=== PATIENT | female | born 1985 | race Caucasian/White ===

== ENCOUNTER 2020-08-07 12:46 | Emergency (ER) | payer BC ==
[~2020-08-07] VITALS: Ht 167.6 cm; Wt 63.5 kg
[2020-08-07] MEDS ORDERED: Percocet 5-3251 EACH PO (18:17)
[2020-08-07] MEDS ORDERED: TIZA4 PO (18:17)
[2020-08-07] MEDS ORDERED: KETO10 PO (18:17)
== END 2020-08-07 18:30 | disposition home or self-care (01) ==
LOC: ER 12:46
DX: M54.6 Pain in thoracic spine (principal); Z88.0 Allergy status to penicillin; Z91.041 Radiographic dye allergy status
CPT/HCPCS: 96372-59; 99283; A9270; J1170; J1885; J3360

== ENCOUNTER 2021-02-03 08:20 | Emergency (ER) | payer BC ==
[~2021-02-03] VITALS: Ht 165.1 cm; Wt 72.6 kg
[~2021-02-03 08:20] MED LIST: KETO10 PO; Percocet 5-3251 EACH PO; TIZA4 PO
[2021-02-03] MEDS ORDERED: LITH300C PO (08:32)
[2021-02-03] MEDS ORDERED: Lamictal200 MG (08:32)
[2021-02-03 08:55] LABS: BASOPHILS ABSOLUTE AUTO 0.06 K/mm3 (0.00-0.23); BASOPHILS PERCENT AUTO 1 % (0-2); EOSINOPHILS ABSOLUTE AUTO 0.49 K/mm3 (0.00-0.68); EOSINOPHILS PERCENT AUTO 6 % (0-6); Hematocrit 39.5 % (33.0-51.0); Hemoglobin 13.3 g/dL (11.5-16.0); IMMATURE GRAN ABSOLUTE AUTO 0.04 K/mm3 (0.00-0.10); IMMATURE GRAN PERCENT AUTO 1 % (0-1); LYMPHOCYTES ABSOLUTE AUTO 2.07 K/mm3 (0.84-5.20); LYMPHOCYTES PERCENT AUTO 24 % (21-46); MONOCYTES ABSOLUTE AUTO 0.58 K/mm3 (0.16-1.47); MONOCYTES PERCENT AUTO 7 % (4-13); Mean Corpuscular HGB 32.1 pg (26.0-34.0); Mean Corpuscular HGB Conc 33.7 g/dL (31.5-36.5); Mean Corpuscular Volume 95 fL (80-100); Mean Platelet Volume 9.3 fL (9.1-12.4); NEUTROPHILS ABSOLUTE AUTO 5.31 K/mm3 (1.96-9.15); NEUTROPHILS PERCENT AUTO 62 % (41-73); Platelet Count 276 K/mm3 (150-400); RDW Coefficient Variation 12.2 % (11.7-14.2); RDW Standard Deviation 42.5 fL (35.1-46.3); Red Blood Cell Count 4.14 M/mm3 (3.80-5.20); White Blood Cell Count 8.55 K/mm3 (4.00-11.30)
[2021-02-03 09:18] LABS: Alanine Aminotransfer (ALT/SGP 18 U/L (12-78); Albumin, Blood 3.9 g/dL (3.4-5.0); Albumin/Globulin Ratio 1.3 (0.8-1.8); Alk Phos 56 U/L (50-136); Anion Gap 4 mmol/L (6-16); Aspartate Aminotrans (AST/SGOT 7 U/L (12-37); Bilirubin, Total 0.3 mg/dL (0.1-1.0); Blood Urea Nitrogen 12 mg/dL (8-24); Bun/Creatinine Ratio 13.2 (12.0-20.0); CO2, Blood 24 mmol/L (21-32); Calcium, Blood 8.4 mg/dL (8.5-10.1); Chloride, Blood 111 mmol/L (98-108); Creatinine, Blood 0.91 mg/dL (0.40-1.00); Globulin, Blood 2.9 g/dL (2.2-4.0); Glomerular Filtration Rate >60 (60-); Glucose, Blood 87 mg/dL (70-99); Sodium, Blood 139 mmol/L (136-145); Total Protein, Blood 6.8 g/dL (6.4-8.2); Troponin I <0.015 ng/mL (0.000-0.040)
== END 2021-02-03 12:30 | disposition home or self-care (01) ==
LOC: ER 08:20
PROVIDERS: Emergency Medicine
DX: R07.9 Chest pain, unspecified (principal); M79.602 Pain in left arm; F17.210 Nicotine dependence, cigarettes, uncomplicated; Z88.0 Allergy status to penicillin; Z88.8 Allergy status to other drugs, medicaments and biological substances; Z79.899 Other long term (current) drug therapy
CPT/HCPCS: 71046; 80053; 83690; 84484; 85025; 93005; 93010; 96374; 99285-25; J2405

== ENCOUNTER → 2022-03-21 | Outpatient (CLI) | payer BC ==
[~2022-03-21] MED LIST changes: +LITH300C PO; +Lamictal200 MG
== END | disposition home or self-care (01) ==
LOC: LAB SHORT 15:15 → PLD 15:15
DX: D22.71 Melanocytic nevi of right lower limb, including hip (principal)
CPT/HCPCS: 88305

== ENCOUNTER 2022-07-20 04:00 | Emergency (ER) | payer BC ==
[~2022-07-20] VITALS: Ht 165.1 cm; Wt 68.0 kg
[2022-07-20] MEDS ORDERED: PRED20 PO (05:35)
[2022-07-20] MEDS ORDERED: ALBU2.5V5 NEB (05:35)
== END 2022-07-20 05:45 | disposition home or self-care (01) ==
LOC: ER 04:00
DX: J45.901 Unspecified asthma with (acute) exacerbation (principal); F17.210 Nicotine dependence, cigarettes, uncomplicated; Z20.822 Contact with and (suspected) exposure to COVID-19
CPT/HCPCS: 94640; 94664; A9270; J7512

== ENCOUNTER → 2024-07-01 | Outpatient (CLI) | payer BC ==
[~2024-07-01] MED LIST changes: +ALBU2.5V5 NEB; +PRED20 PO
== END ==
LOC: LAB SHORT 14:42 → LAB 14:42
DX: N39.0 Urinary tract infection, site not specified (principal)
CPT/HCPCS: 87086

== ENCOUNTER 2025-01-13 17:24 | Emergency (ER) | payer BC ==
[~2025-01-13] VITALS: Ht 165.1 cm; Wt 59.0 kg
[2025-01-13 18:15] LABS: BASOPHILS ABSOLUTE AUTO 0.06 K/mm3 (0.00-0.23); BASOPHILS PERCENT AUTO 1 % (0-2); EOSINOPHILS ABSOLUTE AUTO 0.55 K/mm3 (0.00-0.68); EOSINOPHILS PERCENT AUTO 5 % (0-6); Hematocrit 40.1 % (33.0-51.0); Hemoglobin 13.3 g/dL (11.5-16.0); IMMATURE GRAN ABSOLUTE AUTO 0.03 K/mm3 (0.00-0.10); IMMATURE GRAN PERCENT AUTO 0 % (0-1); LYMPHOCYTES ABSOLUTE AUTO 1.63 K/mm3 (0.84-5.20); LYMPHOCYTES PERCENT AUTO 14 % (21-46); MONOCYTES ABSOLUTE AUTO 0.87 K/mm3 (0.16-1.47); MONOCYTES PERCENT AUTO 8 % (4-13); Mean Corpuscular HGB 33.6 pg (26.0-34.0); Mean Corpuscular HGB Conc 33.2 g/dL (31.5-36.5); Mean Corpuscular Volume 101 fL (80-100); Mean Platelet Volume 9.2 fL (9.1-12.4); NEUTROPHILS PERCENT AUTO 72 % (41-73); Platelet Count 246 K/mm3 (150-400); RDW Coefficient Variation 11.6 % (11.7-14.2); RDW Standard Deviation 43.8 fL (35.1-46.3); Red Blood Cell Count 3.96 M/mm3 (3.80-5.20); White Blood Cell Count 11.34 K/mm3 (4.00-11.30)
[2025-01-13 19:14] LABS: Albumin/Globulin Ratio 1.4 (0.8-1.8); Bilirubin, Total 0.2 mg/dL (0.1-1.0); Bun/Creatinine Ratio 17.2 (12.0-20.0); Calcium, Blood 9.8 mg/dL (8.5-10.1); Creatinine, Blood 0.93 mg/dL (0.40-1.00); Globulin, Blood 2.9 g/dL (2.2-4.0); Potassium, Blood 4.4 mmol/L (3.5-5.5); Total Protein, Blood 6.9 g/dL (6.4-8.2)
[2025-01-13] MEDS ORDERED: ALPRAZOLAM0.5 M1 PO (20:16)
[2025-01-13] MEDS ORDERED: EUTHYROX50 MC1 PO (20:16)
[2025-01-13] MEDS ORDERED: ROSUVASTATIN CA20 MG PO (20:16)
[2025-01-13] MEDS ORDERED: BREYNA 160-4.10.3 GM INH (20:16)
[2025-01-13] MEDS ORDERED: ALBU90OI INH (20:16)
[2025-01-13] MEDS ORDERED: CETI5 PO (20:17)
[2025-01-13 20:22] LABS: Influenza A, PCR NEGATIVE (NEGATIVE); Influenza B, PCR NEGATIVE (NEGATIVE); Resp Syncytial Virus, PCR NEGATIVE (NEGATIVE); SARS-Cov-2 (COVID-19) PCR, MMC NEGATIVE (NEGATIVE)
[2025-01-13] MEDS ORDERED: PRED20 PO (20:30)
[2025-01-13] MEDS ORDERED: RX Prepack Albuterol 1 PREPACK/6.7 GM INH UD ONE (20:35)
[2025-01-13 20:54] VITALS: BP 107/70
== END 2025-01-13 20:57 | disposition home or self-care (01) ==
LOC: ER 17:24
PROVIDERS: Student in an Organized Health Care Education/Training Program
DX: J45.901 Unspecified asthma with (acute) exacerbation (principal); F17.210 Nicotine dependence, cigarettes, uncomplicated; Z88.0 Allergy status to penicillin; Z88.8 Allergy status to other drugs, medicaments and biological substances; Z79.52 Long term (current) use of systemic steroids; Z79.899 Other long term (current) drug therapy; Z11.52 Encounter for screening for COVID-19
CPT/HCPCS: 0241U; 71045; 80053; 84703; 85025; 93005; 93010; 99285-25; A9270

== ENCOUNTER 2025-04-26 21:14 | Emergency (ER) | payer BC ==
[~2025-04-26] VITALS: Ht 165.1 cm; Wt 63.0 kg
[~2025-04-26 21:14] MED LIST changes: +ALBU90OI INH; +ALPRAZOLAM0.5 M1 PO; +BREYNA 160-4.10.3 GM INH; +CETI5 PO; +EUTHYROX50 MC1 PO; +ROSUVASTATIN CA20 MG PO
[2025-04-26 21:33] VITALS: BP 119/62
[2025-04-27] MEDS ORDERED: CLIN300 PO (01:06)
[2025-04-27] MEDS ORDERED: EPIPEN0.3 MG/0.1 IM (01:06)
[2025-04-27] MEDS ORDERED: HYDHCL25 PO (01:06)
== END 2025-04-27 01:21 | disposition home or self-care (01) ==
LOC: ER 21:14
DX: L27.1 Localized skin eruption due to drugs and medicaments taken internally (principal); L29.89 Other pruritus; T36.0X5A Adverse effect of penicillins, initial encounter; K04.7 Periapical abscess without sinus; J45.909 Unspecified asthma, uncomplicated; F17.210 Nicotine dependence, cigarettes, uncomplicated; Z91.041 Radiographic dye allergy status; Z88.1 Allergy status to other antibiotic agents; Z79.51 Long term (current) use of inhaled steroids; Z79.890 Hormone replacement therapy; Z79.52 Long term (current) use of systemic steroids; Z79.899 Other long term (current) drug therapy
CPT/HCPCS: A9270